=== PATIENT | male | born 1980 ===

== ENCOUNTER 2022-07-23 19:40 | Emergency (ER) | payer SELFPAY ==
[~2022-07-23] VITALS: Ht 188 cm; Wt 138.6 kg
[2022-07-23 22:15] VITALS: BP 125/86
== END 2022-07-23 22:17 | disposition home or self-care (01) ==
LOC: ER 19:40
DX: K42.9 Umbilical hernia without obstruction or gangrene (principal); J45.909 Unspecified asthma, uncomplicated
CPT/HCPCS: 99281